=== PATIENT | male | born 1965 | race American Indian/Alaskan Native ===

== ENCOUNTER 2016-11-08 07:33 | Emergency (ER) | payer MEDICARE ==
[2016-11-08 08:23] LABS: Basophils % (Auto) 0.8 % (0.0-1.8); Eosinophils % (Auto) 0.5 % (0.0-4.3); Hematocrit 42.5 % (35.5-45.6); Hemoglobin 14.4 gm/dl (11.8-15.2); Mean Corpuscular HGB Conc 34 % (32-34); Mean Corpuscular Hemoglobin 32 pg (28-32); Mean Corpuscular Volume 96 fl (84-94); Platelet Count 237 K/mm3 (140-440); Red Blood Count 4.45 M/mm3 (3.65-5.03); Red Cell Distribution Width 13.1 % (13.2-15.2); White Blood Count 5.9 K/mm3 (4.5-11.0)
[2016-11-08 11:20] LABS: Anion Gap 25 mmol/L; Blood Urea Nitrogen 13 mg/dL (9-20); Calcium 9.6 mg/dL (8.4-10.2); Carbon Dioxide 20 mmol/L (22-30); Chloride 99.5 mmol/L (98-107); Glucose 76 mg/dL (75-100); Potassium 4.4 mmol/L (3.6-5.0); Sodium 140 mmol/L (137-145)
[2016-11-08 16:33] LABS: Urine Drugs of Abuse Note Disclamer
[2016-11-08] MEDS ORDERED: LIBRIUM PO ONE (16:37)
[2016-11-08] MEDS ORDERED: VALIUM IV ONE (16:37)
[2016-11-08] MEDS ORDERED: ZOFRAN IV ONE (16:37)
[2016-11-08] MEDS ORDERED: NACL ONE (16:37)
--- NOTE | 2016-11-08 16:39 | Emergency Department Report ---
ED General Adult HPI - General Chief complaint: Psych Stated complaint: MH Time Seen by Provider: 11/08/16 16:25 Source: patient, RN notes reviewed, old records reviewed Mode of arrival: Ambulatory Limitations: No Limitations - History of Present Illness Initial comments: This is a 51-year-old male. He is previously unknown to me. He has a past medical history of bipolar disorder, hypertension, GERD, HIV. His HIV specialist is at [facility], he reports an undetectable viral load, and a CD4 count in the 700s. The patient reports that he is on highly active antiretroviral therapy. The patient has been compliant with his HIV medication with the exception over the past few days. The patient presents to the ER complaining of abdominal pain, nausea, after a recent alcohol binge. He wants to get detoxed from alcohol and crack cocaine. His abdominal pain is primarily left lower quadrant. It is achy. It is increasing with palpation, decreases with rest. Positive nausea, no vomiting. There is no testicular pain. No irritative or obstructive urinary symptoms. The patient does report that he feels hopeless, and has thought about suicide. He denies toxic ingestions, and he currently does not have a plan for suicide. -: Gradual Location: abdomen Quality: aching Consistency: intermittent Improves with: rest Worsens with: movement Associated Symptoms: loss of appetite - Related Data Home Medications Medication Instructions Recorded Confirmed Last Taken Norvir 1 cap PO DAILY 01/07/16 11/08/16 Unknown Prezista 1 tab PO DAILY 01/07/16 11/08/16 Unknown TRUVADA 200-300 mg 1 tab PO DAILY 01/07/16 11/08/16 Unknown amLODIPine 5 mg PO DAILY 01/07/16 11/08/16 Unknown Sertraline [Zoloft] 50 mg PO QDAY 11/08/16 11/08/16 Unknown traZODone [Desyrel] 100 mg PO QHS PRN 11/08/16 11/08/16 Unknown Allergies Allergy/AdvReac Type Severity Reaction Status Date / Time lisinopril AdvReac Unknown Verified 01/07/16 01:02 Sulfa (Sulfonamide AdvReac Unknown Verified 01/07/16 01:02 Antibiotics) ED Review of Systems ROS: Stated complaint: MH Other details as noted in HPI Constitutional: denies: fever Eyes: denies: eye discharge ENT: denies: epistaxis Respiratory: denies: cough Cardiovascular: denies: chest pain Gastrointestinal: abdominal pain Genitourinary: as per HPI. denies: urgency, dysuria, testicular pain Musculoskeletal: denies: back pain Skin: denies: lesions Neurological: denies: weakness Psychiatric: anxiety, depression, suicidal thoughts. denies: homicidal thoughts ED Past Medical Hx - Past Medical History Previous Medical History?: Yes Hx Hypertension: Yes Hx GERD: Yes Hx Psychiatric Treatment: Yes (Bipolar) Hx HIV: Yes - Surgical History Past Surgical History?: No - Social History Smoking Status: Current Every Day Smoker Substance Use Type: Alcohol, Cocaine - Medications Home Medications: Home Medications Medication Instructions Recorded Confirmed Last Taken Type Norvir 1 cap PO DAILY 01/07/16 11/08/16 Unknown History Prezista 1 tab PO DAILY 01/07/16 11/08/16 Unknown History TRUVADA 200-300 mg 1 tab PO DAILY 01/07/16 11/08/16 Unknown History amLODIPine 5 mg PO DAILY 01/07/16 11/08/16 Unknown History Sertraline [Zoloft] 50 mg PO QDAY 11/08/16 11/08/16 Unknown History traZODone [Desyrel] 100 mg PO QHS PRN 11/08/16 11/08/16 Unknown History ED Physical Exam - General Limitations: No Limitations General appearance: alert, in no apparent distress - Head Head exam: Present: atraumatic, normocephalic - Eye Eye exam: Present: normal appearance, EOMI, other (patient appears somewhat anxious, mild tongue fasciculations are noted.). Absent: nystagmus - ENT ENT exam: Present: normal exam, normal orophraynx, mucous membranes moist, normal external ear exam - Neck Neck exam: Present: normal inspection, full ROM. Absent: tenderness, meningismus - Respiratory Respiratory exam: Present: normal lung sounds bilaterally. Absent: respiratory distress, wheezes, rales, rhonchi, stridor, chest wall tenderness - Cardiovascular Cardiovascular Exam: Present: regular rate, normal rhythm, normal heart sounds. Absent: bradycardia, tachycardia, irregular rhythm, systolic murmur, diastolic murmur, rubs, gallop - GI/Abdominal GI/Abdominal exam: Present: soft, tenderness (his left lower quadrant tenderness. There is no rebound, guarding or peritoneal signs.), normal bowel sounds. Absent: distended, guarding, rebound, rigid, pulsatile mass - Rectal Rectal exam: Present: deferred - Extremities Exam Extremities exam: Present: normal inspection, full ROM, normal capillary refill. Absent: tenderness, pedal edema, joint swelling, calf tenderness - Back Exam Back exam: Present: normal inspection, full ROM. Absent: tenderness, CVA tenderness (R) - Neurological Exam Neurological exam: Present: alert, oriented X3, normal gait. Absent: motor sensory deficit - Psychiatric Psychiatric exam: Present: depressed, suicidal ideation. Absent: homicidal ideation - Skin Skin exam: Present: warm, dry, intact, normal color. Absent: rash ED Course Vital Signs 11/08/16 11/08/16 11/08/16 07:39 16:29 16:31 Temperature 98.4 F 97.6 F Pulse Rate 107 H 72 Respiratory 18 16 16 Rate Blood Pressure 162/99 Blood Pressure 143/78 [Right] O2 Sat by Pulse 100 100 100 Oximetry 11/08/16 19:38 Temperature 97.7 F Pulse Rate 84 Respiratory 20 Rate Blood Pressure Blood Pressure 170/84 [Right] O2 Sat by Pulse 100 Oximetry - Reevaluation(s) Reevaluation #1: 11/08/16 17:28 Differential diagnosis: Colitis, diverticulitis, pancreatitis, GERD/gastritis, hepatitis, alcohol dependence, alcohol withdrawal, suicidality, mood disorder Assessment and plan: 51-year-old male with abdominal pain after recent alcohol- induced binge, and also suicidality. He requires 1013. May have mild early withdrawal. He will be treated symptomatically with IV fluids, Librium, Valium. Antiemetic medication is ordered. Additional laboratory studies are ordered. CT scan of the abdomen and pelvis is ordered. Medication reconciliation has already been performed by the nurse. We will reassess once his harper points have returned Reevaluation #2: Patient resting comfortably. There is no active vomiting. He appears to be stable from an HIV perspective. A CT scan did not demonstrate any emergent surgical condition. The patient is tolerating liquid feeds. At this point in time, I cannot detect any medical contraindication to psychiatric admission/ evaluation/placement. Crisis team was informed. 11/08/16 18:18 ED Medical Decision Making - Lab Data Result diagrams: 11/08/16 07:58 11/08/16 07:58 Vital Signs 11/08/16 11/08/16 11/08/16 07:39 16:29 16:31 Temperature 98.4 F 97.6 F Pulse Rate 107 H 72 Respiratory 18 16 16 Rate Blood Pressure 162/99 Blood Pressure 143/78 [Right] O2 Sat by Pulse 100 100 100 Oximetry Labs 11/08/16 11/08/16 11/08/16 07:58 07:58 07:58 WBC 5.9 RBC 4.45 Hgb 14.4 Hct 42.5 MCV 96 H MCH 32 MCHC 34 RDW 13.1 L Plt Count 237 Lymph % (Auto) 40.2 H [place] % (Auto) 7.9 H Eos % (Auto) 0.5 Baso % (Auto) 0.8 Lymph # 2.4 [place] # 0.5 Eos # 0.0 Baso # 0.0 Seg Neutrophils % 50.6 Seg Neutrophils # 3.0 Sodium 140 Potassium 4.4 Chloride 99.5 Carbon Dioxide 20 L Anion Gap 25 BUN 13 Creatinine 1.0 Estimated GFR > 60 BUN/Creatinine Ratio 13.00 Glucose 76 Calcium 9.6 Urine Color Urine Turbidity Urine pH Ur Specific [place] Urine Protein Urine Glucose (UA) Urine Ketones Urine Blood Urine Nitrite Urine Bilirubin Urine Urobilinogen Ur Leukocyte Esterase Urine WBC (Auto) Urine RBC (Auto) U Epithel Cells (Auto) Urine Mucus Urine Cocaine Screen Plasma/Serum Alcohol 0.07 11/08/16 11/08/16 16:20 16:29 WBC RBC Hgb Hct MCV MCH MCHC RDW Plt Count Lymph % (Auto) [place] % (Auto) Eos % (Auto) Baso % (Auto) Lymph # [place] # Eos # Baso # Seg Neutrophils % Seg Neutrophils # Sodium Potassium Chloride Carbon Dioxide Anion Gap BUN Creatinine Estimated GFR BUN/Creatinine Ratio Glucose Calcium Urine Color Yellow Urine Turbidity Clear Urine pH 5.0 Ur Specific [place] 1.023 Urine Protein 30 mg/dl Urine Glucose (UA) Neg Urine Ketones 20 Urine Blood Sm Urine Nitrite Neg Urine Bilirubin Neg Urine Urobilinogen < 2.0 Ur Leukocyte Esterase Neg Urine WBC (Auto) 1.0 Urine RBC (Auto) < 1.0 U Epithel Cells (Auto) < 1.0 Urine Mucus 1+ Urine Cocaine Screen Presumptive positive Plasma/Serum Alcohol - Radiology Data Radiology results: report reviewed CT scan of the abdomen and pelvis with IV contrast: No acute intra-abdominal processes noted. No inflammatory processes noted. There is a complex cyst in the left mid kidney. May be causing a mild delay of excretion contrast, however there is no evidence for obstruction to the left kidney. No acute inflammatory processes noted. Critical care attestation.: If time is entered above; I have spent that time in minutes in the direct care of this critically ill patient, excluding procedure time. ED Disposition Clinical Impression: Polysubstance abuse, Mood disorder Disposition: DC/TX PSY HOSP/PSY UNIT Is pt being admited?: No Does the pt Need Aspirin: No Condition: Stable Referrals: PRIMARY CARE, [Primary Care Provider] - 3-5 Days
[2016-11-08] MEDS: NACL 0.9% 500 ML IV SCH (17:01)
[2016-11-08 17:21] LABS: Bilirubin,Urine NEG (Negative); Blood,Urine SM (Negative); Ketones,Urine 20 mg/dL (Negative); Leukocyte Esterase,Urine NEG (Negative); Mucus,Urine 1+ /HPF; Nitrite,Urine NEG (Negative); RBC,Urine < 1.0 /HPF (0.0-6.0); Urobilinogen,Urine < 2.0 mg/dL (<2.0)
[2016-11-08] MEDS ORDERED: DESYREL PO PRN (17:22)
[2016-11-08] MEDS ORDERED: ZOFRAN ODT PO PRN (17:23)
[2016-11-08] MEDS ORDERED: PEPCID PO PRN (17:23)
[2016-11-08] MEDS ORDERED: ATIVAN IM PRN (17:23)
[2016-11-08] MEDS ORDERED: NORVIR PO SCH (17:30)
[2016-11-08] MEDS ORDERED: TRUVADA PO SCH (17:30)
[2016-11-08] MEDS ORDERED: NACL 0.9% 1000 ML 2,000 ML ONE (17:30)
[2016-11-08 17:36] LABS: Albumin 4.7 g/dL (3.9-5); Albumin/Globulin Ratio 1.6 %; Bilirubin,Direct 0.3 mg/dL (0-0.2); Bilirubin,Total 1.3 mg/dL (0.1-1.2); Total Protein 7.7 g/dL (6.3-8.2)
--- NOTE | 2016-11-08 18:07 | Cat Scan Report ---
FINAL REPORT EXAM: CT ABDOMEN PELVIS W CON HISTORY: LLQ pain nausea TECHNIQUE: Standard enhanced CT of the abdomen and pelvis. Coronal and sagittal reconstruction was also performed. Delayed images through the kidneys and bladder were obtained. Contrast: 100 mL Omnipaque 300 given IV. PRIORS: None. FINDINGS: Within the abdomen, the liver, spleen, pancreas, gallbladder, and adrenal glands are unremarkable. In the peripelvic left kidney, there is a 4.3 x 3.5 x 4.2 cm low-density multilobulated cyst (axial image 40, series 3). There is a hypodense 9 mm cyst in the midpole right kidney (Axial image 35, series 4. On delayed imaging, there is complete visualization of the right ureter with excreted contrast. However, no significant excreted contrast is seen in the left ureter. There is contrast in the nondilated left calices. However, the presence of the large peripelvic cyst may cause a mild delay in excretion into the left ureter. No delayed nephrogram is seen to suggest renal obstruction on the left. No evidence for retroperitoneal or pelvic lymphadenopathy is seen. The small bowel loops have normal caliber. There is moderate stool present throughout the colon, most of which is in the distal half of the colon. No soft tissue mass, fluid collection, inflammatory change, or free air is seen within the abdomen or pelvis. Within the pelvis, the bladder is unremarkable. The prostate is normal. No evidence for mass or lymphadenopathy is seen in the pelvis. Images through the upper abdomen include the lung bases which are expanded and clear. Bony structures show no focal abnormalities and are intact. IMPRESSION: 1. no acute intra-abdominal process noted. No inflammatory process is seen in the left lower quadrant. 2. Large peripelvic cyst in the left mid kidney. This may be causing a mild delay of excreted contrast entering the left ureter. However, no radiographic evidence for obstruction of the left kidney is seen. 3. Small right renal cyst
[2016-11-09] MEDS: EMTRIVA PO SCH ×2 (04:02→10:59)
[2016-11-09] MEDS: NORVIR PO SCH ×2 (04:02→10:59)
[2016-11-09] MEDS: VIREAD PO SCH ×2 (04:03→10:59)
[2016-11-09] MEDS: PREZISTA PO SCH ×2 (04:04→11:00)
[2016-11-09] MEDS: ZOLOFT PO SCH ×2 (04:49→11:05)
[2016-11-09] MEDS: NORVASC PO SCH (11:04)
[2016-11-09] MEDS: NACL 0.9% 500 ML IV SCH (18:03)
--- NOTE | 2016-11-10 01:54 | Event Note ---
Date: 11/10/16 Vital signs are reviewed. No recent events. Awaiting psychiatric placement Vital Signs 11/08/16 11/08/16 11/08/16 07:39 16:29 16:31 Temperature 98.4 F 97.6 F Pulse Rate 107 H 72 Respiratory 18 16 16 Rate Blood Pressure 162/99 Blood Pressure 143/78 [Right] O2 Sat by Pulse 100 100 100 Oximetry 11/08/16 11/09/16 11/09/16 19:38 02:10 11:04 Temperature 97.7 F 97.7 F Pulse Rate 84 88 60 Respiratory 20 16 Rate Blood Pressure 144/75 Blood Pressure 170/84 135/73 [Right] O2 Sat by Pulse 100 98 Oximetry 11/09/16 11:05 Temperature Pulse Rate 60 Respiratory 18 Rate Blood Pressure Blood Pressure 144/75 [Right] O2 Sat by Pulse 98 Oximetry
[2016-11-10] MEDS: ZOLOFT PO SCH (09:55)
[2016-11-10] MEDS: NORVIR PO SCH (09:55)
[2016-11-10] MEDS: EMTRIVA PO SCH (09:55)
[2016-11-10] MEDS: VIREAD PO SCH (09:55)
[2016-11-10] MEDS: NORVASC PO SCH (09:55)
[2016-11-11] MEDS: NORVIR PO SCH (10:32)
[2016-11-11] MEDS: EMTRIVA PO SCH (10:32)
[2016-11-11] MEDS: ZOLOFT PO SCH (10:33)
[2016-11-11] MEDS: VIREAD PO SCH (10:33)
[2016-11-11] MEDS: NORVASC PO SCH (10:33)
--- NOTE | 2016-11-12 05:59 | Event Note ---
Date: 11/12/16 Vital signs reviewed. Patient awaiting psychiatric placement. Vital Signs 11/08/16 11/08/16 11/08/16 07:39 16:29 16:31 Temperature 98.4 F 97.6 F Pulse Rate 107 H 72 Respiratory 18 16 16 Rate Blood Pressure 162/99 Blood Pressure 143/78 [Right] O2 Sat by Pulse 100 100 100 Oximetry 11/08/16 11/09/16 11/09/16 19:38 02:10 11:04 Temperature 97.7 F 97.7 F Pulse Rate 84 88 60 Respiratory 20 16 Rate Blood Pressure 144/75 Blood Pressure 170/84 135/73 [Right] O2 Sat by Pulse 100 98 Oximetry 11/09/16 11/09/16 11/09/16 11:05 19:25 20:20 Temperature 98.5 F Pulse Rate 60 60 Respiratory 18 18 18 Rate Blood Pressure Blood Pressure 144/75 132/73 [Right] O2 Sat by Pulse 98 100 Oximetry 11/10/16 11/10/16 11/10/16 07:30 09:54 09:55 Temperature 98.1 F Pulse Rate 57 L 79 79 Respiratory 20 18 Rate Blood Pressure 125/75 Blood Pressure 123/81 125/75 [Right] O2 Sat by Pulse 98 98 Oximetry 11/10/16 11/11/16 11/11/16 19:25 08:55 10:33 Temperature 98.5 F 97.5 F L Pulse Rate 56 L 50 L 50 L Respiratory 18 18 Rate Blood Pressure 158/83 Blood Pressure 133/66 158/83 [Right] O2 Sat by Pulse 99 99 Oximetry 11/11/16 21:00 Temperature 97.8 F Pulse Rate 53 L Respiratory 18 Rate Blood Pressure Blood Pressure 143/88 [Right] O2 Sat by Pulse 99 Oximetry
[2016-11-12] MEDS: NORVASC PO SCH (11:21)
[2016-11-12] MEDS: EMTRIVA PO SCH (11:21)
[2016-11-12] MEDS: ZOLOFT PO SCH (11:22)
[2016-11-12] MEDS: VIREAD PO SCH (11:22)
[2016-11-12] MEDS: NORVIR PO SCH (11:22)
--- NOTE | 2016-11-13 04:43 | Event Note ---
Date: 11/13/16 Vital signs reviewed. Awaiting psychiatric placement. Vital Signs 11/08/16 11/08/16 11/08/16 07:39 16:29 16:31 Temperature 98.4 F 97.6 F Pulse Rate 107 H 72 Respiratory 18 16 16 Rate Blood Pressure 162/99 Blood Pressure 143/78 [Right] O2 Sat by Pulse 100 100 100 Oximetry 11/08/16 11/09/16 11/09/16 19:38 02:10 11:04 Temperature 97.7 F 97.7 F Pulse Rate 84 88 60 Respiratory 20 16 Rate Blood Pressure 144/75 Blood Pressure 170/84 135/73 [Right] O2 Sat by Pulse 100 98 Oximetry 11/09/16 11/09/16 11/09/16 11:05 19:25 20:20 Temperature 98.5 F Pulse Rate 60 60 Respiratory 18 18 18 Rate Blood Pressure Blood Pressure 144/75 132/73 [Right] O2 Sat by Pulse 98 100 Oximetry 11/10/16 11/10/16 11/10/16 07:30 09:54 09:55 Temperature 98.1 F Pulse Rate 57 L 79 79 Respiratory 20 18 Rate Blood Pressure 125/75 Blood Pressure 123/81 125/75 [Right] O2 Sat by Pulse 98 98 Oximetry 11/10/16 11/11/16 11/11/16 19:25 08:55 10:33 Temperature 98.5 F 97.5 F L Pulse Rate 56 L 50 L 50 L Respiratory 18 18 Rate Blood Pressure 158/83 Blood Pressure 133/66 158/83 [Right] O2 Sat by Pulse 99 99 Oximetry 11/11/16 11/12/16 11/12/16 21:00 10:00 11:21 Temperature 97.8 F Pulse Rate 53 L 66 Respiratory 18 18 Rate Blood Pressure 124/84 Blood Pressure 143/88 [Right] O2 Sat by Pulse 99 Oximetry 11/12/16 11/12/16 19:00 21:00 Temperature 98.1 F Pulse Rate 82 Respiratory 16 16 Rate Blood Pressure Blood Pressure 128/78 [Right] O2 Sat by Pulse 100 100 Oximetry
[2016-11-13] MEDS: NORVASC PO SCH (11:11)
[2016-11-13] MEDS: EMTRIVA PO SCH (11:11)
[2016-11-13 11:12] VITALS: BP 97/72
[2016-11-13] MEDS: NORVIR PO SCH (11:12)
[2016-11-13] MEDS: VIREAD PO SCH (11:12)
[2016-11-13] MEDS: ZOLOFT PO SCH (11:13)
== END 2016-11-13 19:30 ==
LOC: ED 07:33 → EEVIPCON 07:33 → ED 11-13 19:30
DX: F39 Unspecified mood [affective] disorder (principal); F19.10 Other psychoactive substance abuse, uncomplicated; I10 Essential (primary) hypertension; K21.9 Gastro-esophageal reflux disease without esophagitis; F31.9 Bipolar disorder, unspecified
CPT/HCPCS: 36415; 74177; 80048; 80074; 80307; 81001; 82550; 83690; 83735; 85025; 96374; 96375; 99285; G0480; J2405; J3360; J7030; Q9967; 80320

== ENCOUNTER 2017-09-07 12:32 | Emergency (ER) | payer MEDICARE ==
[2017-09-07 14:45] LABS: Urine Drugs of Abuse Note Disclamer
[2017-09-07 14:55] LABS: Bilirubin,Urine NEG (Negative); Blood,Urine NEG (Negative); Ketones,Urine NEG (Negative); Leukocyte Esterase,Urine NEG (Negative); Nitrite,Urine NEG (Negative); Protein,Urine <15 mg/dL mg/dL (Negative); RBC,Urine < 1.0 /HPF (0.0-6.0); Urobilinogen,Urine < 2.0 mg/dL (<2.0); WBC,Urine < 1.0 /HPF (0.0-6.0)
[2017-09-07 15:42] LABS: Basophils % (Auto) 0.6 % (0.0-1.8); Eosinophils % (Auto) 0.6 % (0.0-4.3); Hematocrit 35.8 % (35.5-45.6); Hemoglobin 12.2 gm/dl (11.8-15.2); Mean Corpuscular HGB Conc 34 % (32-34); Mean Corpuscular Hemoglobin 33 pg (28-32); Mean Corpuscular Volume 98 fl (84-94); Platelet Count 186 K/mm3 (140-440); Red Blood Count 3.66 M/mm3 (3.65-5.03); White Blood Count 5.1 K/mm3 (4.5-11.0)
[2017-09-07 15:51] LABS: Anion Gap 17 mmol/L; BUN/Creatinine Ratio 20; Blood Urea Nitrogen 20 mg/dL (9-20); Carbon Dioxide 27 mmol/L (22-30); Chloride 102.5 mmol/L (98-107); Glucose 89 mg/dL (75-100); Potassium 3.8 mmol/L (3.6-5.0); Sodium 143 mmol/L (137-145)
[2017-09-07 15:59] LABS: Creatine Kinase MB 5.6 ng/mL (0.0-4.0)
[2017-09-07] MEDS ORDERED: MILK OF MAGNESIA PO PRN (18:05)
[2017-09-07] MEDS ORDERED: TYLENOL PO PRN (18:05)
[2017-09-07] MEDS ORDERED: ALUM-MAG HYDROX-SIMETH 200-200-20MG/5ML PO PRN (18:05)
--- NOTE | 2017-09-07 18:12 | Emergency Department Report ---
ED Psych HPI - General Chief Complaint: Psych Stated Complaint: SUICIDAL THOUGHTS Time Seen by Provider: 09/07/17 15:30 Source: patient Mode of arrival: Ambulatory - History of Present Illness Initial Comments: Patient has had multiple previous psychiatric admissions. He states he wants to be admitted again for stabilization. He states he is having suicidal and homicidal thoughts. He has a history of HIV and states he is noncompliant with his medication. He states he is depressed. He admits to alcohol and cocaine abuse. MD Complaint: suicidal ideation -: month(s) Associated Psychiatric Symptoms: depression, homicidal ideation History of same: Yes Quality: intermittent Improves With: none Worsens With: none Context: recent alcohol abuse, recent drug abuse Associated Symptoms: denies other symptoms Treatments Prior to Arrival: none If Self Harm: admits thoughts of - Related Data Home Medications Medication Instructions Recorded Confirmed Last Taken Norvir 1 cap PO DAILY 01/07/16 11/08/16 Unknown Prezista 1 tab PO DAILY 01/07/16 11/08/16 Unknown TRUVADA 200-300 mg 1 tab PO DAILY 01/07/16 11/08/16 Unknown amLODIPine 5 mg PO DAILY 01/07/16 11/08/16 Unknown Sertraline [Zoloft] 50 mg PO QDAY 11/08/16 11/08/16 Unknown traZODone [Desyrel] 100 mg PO QHS PRN 11/08/16 11/08/16 Unknown Allergies Allergy/AdvReac Type Severity Reaction Status Date / Time lisinopril AdvReac Unknown Verified 09/07/17 13:08 Sulfa (Sulfonamide AdvReac Unknown Verified 09/07/17 13:08 Antibiotics) ED Review of Systems ROS: Stated complaint: SUICIDAL THOUGHTS Other details as noted in HPI Constitutional: denies: chills, fever Eyes: denies: eye pain, eye discharge, vision change ENT: denies: ear pain, throat pain Respiratory: denies: cough, shortness of breath, wheezing Cardiovascular: denies: chest pain, palpitations Endocrine: no symptoms reported Gastrointestinal: denies: abdominal pain, nausea, diarrhea Genitourinary: denies: urgency, dysuria Musculoskeletal: denies: back pain, joint swelling, arthralgia Skin: denies: rash, lesions Neurological: denies: headache, weakness, paresthesias Psychiatric: as per HPI, depression, suicidal thoughts. denies: anxiety Hematological/Lymphatic: denies: easy bleeding, easy bruising ED Past Medical Hx - Past Medical History Hx Hypertension: Yes Hx GERD: Yes Hx Psychiatric Treatment: Yes (Bipolar; Schizophrenia) Hx HIV: Yes (On medications) - Surgical History Past Surgical History?: Yes Additional Surgical History: Rectal fistula repair - Social History Smoking Status: Never Smoker Substance Use Type: Alcohol, Cocaine - Medications Home Medications: Home Medications Medication Instructions Recorded Confirmed Last Taken Type Norvir 1 cap PO DAILY 01/07/16 11/08/16 Unknown History Prezista 1 tab PO DAILY 01/07/16 11/08/16 Unknown History TRUVADA 200-300 mg 1 tab PO DAILY 01/07/16 11/08/16 Unknown History amLODIPine 5 mg PO DAILY 01/07/16 11/08/16 Unknown History Sertraline [Zoloft] 50 mg PO QDAY 11/08/16 11/08/16 Unknown History traZODone [Desyrel] 100 mg PO QHS PRN 11/08/16 11/08/16 Unknown History ED Physical Exam - General Limitations: No Limitations General appearance: alert, in no apparent distress - Head Head exam: Present: atraumatic, normocephalic - Eye Eye exam: Present: normal appearance. Absent: scleral icterus - ENT ENT exam: Present: normal exam, mucous membranes moist - Neck Neck exam: Present: normal inspection. Absent: tenderness, meningismus - Respiratory Respiratory exam: Present: normal lung sounds bilaterally. Absent: respiratory distress - Cardiovascular Cardiovascular Exam: Present: regular rate, normal rhythm. Absent: systolic murmur, diastolic murmur, rubs, gallop - GI/Abdominal GI/Abdominal exam: Present: soft, normal bowel sounds. Absent: distended, tenderness, guarding, rebound, rigid - Rectal Rectal exam: Present: deferred - Extremities Exam Extremities exam: Present: normal inspection - Back Exam Back exam: Present: normal inspection - Neurological Exam Neurological exam: Present: alert, oriented X3, CN II-XII intact. Absent: motor sensory deficit - Psychiatric Psychiatric exam: Present: normal mood, flat affect - Skin Skin exam: Present: warm, dry, intact, normal color. Absent: rash ED Course Vital Signs 09/07/17 13:08 Temperature 98 F Pulse Rate 58 L Respiratory 18 Rate Blood Pressure 143/88 O2 Sat by Pulse 100 Oximetry - Reevaluation(s) Reevaluation #1: Case was discussed with mental health provider. A 1013 was placed. Patient is medically cleared for psychiatric disposition. 09/07/17 18:11 ED Medical Decision Making - Lab Data Result diagrams: 09/07/17 15:12 09/07/17 15:12 Laboratory Results - last 24 hr 09/07/17 09/07/17 09/07/17 15:12 15:12 15:12 WBC 5.1 RBC 3.66 Hgb 12.2 Hct 35.8 MCV 98 H MCH 33 H MCHC 34 RDW 13.0 L Plt Count 186 Lymph % (Auto) 37.7 H [place] % (Auto) 9.1 H Eos % (Auto) 0.6 Baso % (Auto) 0.6 Lymph # 1.9 [place] # 0.5 Eos # 0.0 Baso # 0.0 Seg Neutrophils % 52.0 Seg Neutrophils # 2.6 Sodium 143 Potassium 3.8 Chloride 102.5 Carbon Dioxide 27 Anion Gap 17 BUN 20 Creatinine 1.0 Estimated GFR > 60 BUN/Creatinine Ratio 20 Glucose 89 Calcium 9.0 Total Creatine Kinase CK-MB (CK-2) CK-MB (CK-2) Rel Index Urine Color Urine Turbidity Urine pH Ur Specific [place] Urine Protein Urine Glucose (UA) Urine Ketones Urine Blood Urine Nitrite Urine Bilirubin Urine Urobilinogen Ur Leukocyte Esterase Urine WBC (Auto) Urine RBC (Auto) Urine Opiates Screen Urine Methadone Screen Ur Barbiturates Screen Ur Phencyclidine Scrn Ur Amphetamines Screen U Benzodiazepines Scrn Urine Cocaine Screen U Marijuana (THC) Screen Drugs of Abuse Note Plasma/Serum Alcohol < 0.01 09/07/17 09/07/17 09/07/17 15:12 Unknown Unknown WBC RBC Hgb Hct MCV MCH MCHC RDW Plt Count Lymph % (Auto) [place] % (Auto) Eos % (Auto) Baso % (Auto) Lymph # [place] # Eos # Baso # Seg Neutrophils % Seg Neutrophils # Sodium Potassium Chloride Carbon Dioxide Anion Gap BUN Creatinine Estimated GFR BUN/Creatinine Ratio Glucose Calcium Total Creatine Kinase 325 H CK-MB (CK-2) 5.6 H CK-MB (CK-2) Rel Index 1.7 Urine Color Yellow Urine Turbidity Clear Urine pH 7.0 Ur Specific [place] 1.018 Urine Protein <15 mg/dl Urine Glucose (UA) Neg Urine Ketones Neg Urine Blood Neg Urine Nitrite Neg Urine Bilirubin Neg Urine Urobilinogen < 2.0 Ur Leukocyte Esterase Neg Urine WBC (Auto) < 1.0 Urine RBC (Auto) < 1.0 Urine Opiates Screen Presumptive negative Urine Methadone Screen Presumptive negative Ur Barbiturates Screen Presumptive negative Ur Phencyclidine Scrn Presumptive negative Ur Amphetamines Screen Presumptive negative U Benzodiazepines Scrn Presumptive negative Urine Cocaine Screen Presumptive positive U Marijuana (THC) Screen Presumptive negative Drugs of Abuse Note Disclamer Plasma/Serum Alcohol Critical care attestation.: If time is entered above; I have spent that time in minutes in the direct care of this critically ill patient, excluding procedure time. ED Disposition Clinical Impression: Suicidal ideation, Cocaine abuse, HIV antibody positive Depression Qualifiers: Depression Type: unspecified Qualified Code(s): F32.9 - Major depressive disorder, single episode, unspecified Disposition: DC/TX-65 PSY HOSP/PSY UNIT Is pt being admited?: No Does the pt Need Aspirin: No Condition: Stable Referrals: PRIMARY CARE [Primary Care Provider] - 3-5 Days Time of Disposition: 18:12
[2017-09-07 21:14] VITALS: BP 132/75
== END 2017-09-08 00:33 ==
LOC: ED 12:32
DX: R45.851 Suicidal ideations (principal); F32.9 Major depressive disorder, single episode, unspecified; F14.10 Cocaine abuse, uncomplicated; Z21 Asymptomatic human immunodeficiency virus [HIV] infection status; K21.9 Gastro-esophageal reflux disease without esophagitis; I10 Essential (primary) hypertension; F31.9 Bipolar disorder, unspecified; Z88.2 Allergy status to sulfonamides; Z88.8 Allergy status to other drugs, medicaments and biological substances
CPT/HCPCS: 36415; 80048; 80307; 81001; 82550; 82553; 85025; 99285; G0480; 80320

== ENCOUNTER 2017-11-19 02:45 | Emergency (ER) | payer MEDICARE ==
[2017-11-19 03:26] LABS: Basophils % (Auto) 0.6 % (0.0-1.8); Eosinophils # (Auto) 0.1 K/mm3 (0.0-0.4); Eosinophils % (Auto) 1.1 % (0.0-4.3); Lymphocytes # (Auto) 2.9 K/mm3 (1.2-5.4); Lymphocytes % (Auto) 53.2 % (13.4-35.0); Mean Corpuscular HGB Conc 36 % (32-34); Mean Corpuscular Hemoglobin 34 pg (28-32); Mean Corpuscular Volume 96 fl (84-94); Monocytes # (Auto) 0.4 K/mm3 (0.0-0.8); Monocytes % (Auto) 6.8 % (0.0-7.3); Platelet Count 202 K/mm3 (140-440); Red Cell Distribution Width 13.8 % (13.2-15.2)
[2017-11-19 03:34] LABS: Hematocrit 38.2 % (35.5-45.6); Hemoglobin 13.8 gm/dl (11.8-15.2)
[2017-11-19 03:41] LABS: Calcium 9.1 mg/dL (8.4-10.2)
[2017-11-19 04:40] LABS: Bilirubin,Urine NEG (Negative); Blood,Urine NEG (Negative); Color,Urine Yellow (Yellow); Hyaline Casts,Urine 1 /LPF; Mucus,Urine FEW /HPF; Nitrite,Urine NEG (Negative); Protein,Urine <15 mg/dL mg/dL (Negative); Urobilinogen,Urine < 2.0 mg/dL (<2.0)
[2017-11-19 04:44] LABS: WBC,Urine < 1.0 /HPF (0.0-6.0)
[2017-11-19 04:53] LABS: Amphetamine Screen,Urine PRESUMPTIVE NEGATIVE; Benzodiazepines Screen,Urine PRESUMPTIVE NEGATIVE; Cannabinoid Screen,Urine PRESUMPTIVE NEGATIVE; Cocaine Screen,Urine PRESUMPTIVE NEGATIVE; Methadone Screen,Urine PRESUMPTIVE NEGATIVE; Opiate Screen,Urine PRESUMPTIVE NEGATIVE
--- NOTE | 2017-11-19 05:23 | Emergency Department Report ---
HPI - General Chief Complaint: Psych Time Seen by Provider: 11/19/17 04:00 - HPI HPI: 52-year-old female presents to the emergency department via PD after he was making some threats towards his partner. The patient says that he and his partner went to see the infectious disease doctor sometime yesterday and he found out that his partner had AIDS. The patient himself has HIV and says that he is compliant with taking medication. He also has a history of bipolar disorder and diverticulosis/diverticulitis. I asked if he was unaware that his partner had HIV and he said yes. However it also may have been that he was just not aware that the partner had developed AIDS. Whatever it was, it caused them to get into an argument and they may have ended their relationship. The 1013 by the police say that he was mentioning having suicidal thoughts. However in the emergency department here, the patient says that he "wants to kill him" in reference to his partner. ED Past Medical Hx - Past Medical History Hx Hypertension: Yes Hx GERD: Yes Hx Psychiatric Treatment: Yes (Bipolar; Schizophrenia) Hx HIV: Yes (On medications) - Surgical History Additional Surgical History: Rectal fistula repair - Social History Smoking Status: Never Smoker Substance Use Type: Alcohol - Medications Home Medications: Home Medications Medication Instructions Recorded Confirmed Last Taken Type Norvir 1 cap PO DAILY 01/07/16 11/19/17 Unknown History Prezista 1 tab PO DAILY 01/07/16 11/19/17 Unknown History TRUVADA 200-300 mg 1 tab PO DAILY 01/07/16 11/19/17 Unknown History amLODIPine 5 mg PO DAILY 01/07/16 11/19/17 Unknown History Sertraline [Zoloft] 50 mg PO QDAY 11/08/16 11/19/17 Unknown History traZODone [Desyrel] 100 mg PO QHS PRN 11/08/16 11/19/17 Unknown History ED Review of Systems ROS: Stated complaint: SI THOUGHTS Other details as noted in HPI Comment: All other systems reviewed and negative Constitutional: denies: chills, fever Eyes: denies: eye pain, eye discharge, vision change ENT: denies: ear pain, throat pain Respiratory: denies: cough, shortness of breath, wheezing Cardiovascular: denies: chest pain, palpitations Gastrointestinal: denies: abdominal pain, nausea, diarrhea Genitourinary: denies: urgency, dysuria Musculoskeletal: denies: back pain, joint swelling, arthralgia Skin: denies: rash, lesions Neurological: denies: headache, weakness, paresthesias Psychiatric: homicidal thoughts, suicidal thoughts. denies: auditory hallucinations, visual hallucinations Physical Exam - Physical Exam Vital Signs: Vital Signs 11/19/17 02:54 Temperature 97.4 F L Pulse Rate 100 H Respiratory 18 Rate Blood Pressure 164/99 O2 Sat by Pulse 96 Oximetry Physical Exam: GENERAL: The patient is well-developed well-nourished. HENT: Normocephalic. Atraumatic. Patient has moist mucous membranes. EYES: Extraocular motions are intact. Pupils equal reactive to light bilaterally. NECK: Supple. Trachea is midline. CHEST/LUNGS: Clear to auscultation. There is no respiratory distress noted. HEART/CARDIOVASCULAR: Regular. There is no tachycardia. There is no murmur. ABDOMEN: Abdomen is soft, nontender. Patient has normal bowel sounds. There is no abdominal distention. SKIN: Skin is warm and dry. NEURO: The patient is awake, alert, and oriented. The patient is cooperative. The patient has no focal neurologic deficits. The patient has normal speech. MUSCULOSKELETAL: There is no tenderness or deformity. There is no limitation range of motion. There is no evidence of acute injury. ED Course Vital Signs 11/19/17 02:54 Temperature 97.4 F L Pulse Rate 100 H Respiratory 18 Rate Blood Pressure 164/99 O2 Sat by Pulse 96 Oximetry ED Medical Decision Making - Lab Data Result diagrams: 11/19/17 03:07 11/19/17 03:07 - Medical Decision Making Vital signs stable. The patient has some moments where he gets tearful but otherwise he has been appropriate. Apparently he expressed some suicidal ideations towards the police but in the emergency department he is expressing some anger and/or making violent threats towards his partner. Urine drug screen is negative but blood alcohol level is 0.18. The rest of the labs are unremarkable. Patient has been made a 1013 secondary to the suicidal and/or homicidal ideations. He may need to sober up a bit but otherwise the patient is medically cleared for psychiatric placement. - Differential Diagnosis bipolar disorder, schizophrenia, substance abuse, depression Critical Care Time: No Critical care attestation.: If time is entered above; I have spent that time in minutes in the direct care of this critically ill patient, excluding procedure time. ED Disposition Clinical Impression: Homicidal ideations Alcohol intoxication Qualifiers: Complication of substance-induced condition: uncomplicated Qualified Code(s): F10.920 - Alcohol use, unspecified with intoxication, uncomplicated Hypertension Qualifiers: Hypertension type: essential hypertension Qualified Code(s): I10 - Essential ( primary) hypertension Disposition: DC/TX-65 PSY HOSP/PSY UNIT Is pt being admited?: No Condition: Stable Instructions: Hypertension (ED) Time of Disposition: 05:25
[2017-11-19 11:50] VITALS: BP 130/81
--- NOTE | 2017-11-19 14:31 | Consultation ---
History of Present Illness - Reason for Consult Consult date: 11/19/17 Reason for consult: Mental Health Evaluation Requesting physician: GIANCARLO FOSTER - Chief Complaint Chief complaint: "I am upset" - History of Present Psychiatric Illness 52-year-old female presents to the emergency department via PD after he was making some threats towards his partner. Today the patient is calm and cooperative during the assessment. He stated that his partner never told him that he had "Full blown AIDS." He stated that this angered him and he threatened his partner, also he is suicidal without a plan when asked. He stated that he does not want to kill anyone, but he does not have a reason to live anymore. He stated having a hx of depression and see a psychiatrist at [facility]. He stated several suicidal attempts in the past by overdose. He stated that he "got drunk" yesterday when he found out his partner's status. His alcohol serum was 0.18 on admission. He stated that he normally does not drink alcohol. He denies HI's and AVH's. He denies sleep disturbance and a poor appetite. He denies recreational drug use. Medications and Allergies Allergies Allergy/AdvReac Type Severity Reaction Status Date / Time lisinopril AdvReac Unknown Verified 09/07/17 13:08 Sulfa (Sulfonamide AdvReac Unknown Verified 09/07/17 13:08 Antibiotics) Home Medications Medication Instructions Recorded Confirmed Last Taken Type Norvir 1 cap PO DAILY 01/07/16 11/19/17 Unknown History Prezista 1 tab PO DAILY 01/07/16 11/19/17 Unknown History TRUVADA 200-300 mg 1 tab PO DAILY 01/07/16 11/19/17 Unknown History amLODIPine 5 mg PO DAILY 01/07/16 11/19/17 Unknown History Sertraline [Zoloft] 50 mg PO QDAY 11/08/16 11/19/17 Unknown History traZODone [Desyrel] 100 mg PO QHS PRN 11/08/16 11/19/17 Unknown History Past psychiatric history - Past Medical History Past Medical History: HIV/AIDS Past Surgical History: No surgical history - past Psychiatric treatment and history Psych: Depression psychiatric treatment history: Multiple inpatient psy settings. Denies a fam psy hx. - Social History Social history: lives with family Mental Status Exam - Vital signs Last Vital Signs Temp 98.4 F 11/19/17 10:00 Pulse 89 11/19/17 10:00 Resp 18 11/19/17 10:00 BP 130/81 11/19/17 10:00 Pulse Ox 98 11/19/17 10:00 - Exam Narrative exam: MSE: Appearance: calm Behavior: poor eye contact Speech: regular rate and tone Mood: "okay" withdrawn Affect: flat Thought Process: circumstantial Thought Content: denies HI's and AVH's Motor Activity: sitting up in the bed Cognition: A/O x 3 Insight: variable Judgment: variable Results Result Diagrams: 11/19/17 03:07 11/19/17 03:07 Abnormal lab results 11/19/17 11/19/17 11/19/17 Range/Units 03:07 03:07 03:07 MCV (84-94) fl MCH (28-32) pg MCHC (32-34) % Lymph % (Auto) (13.4-35.0) % Seg Neutrophils % (40.0-70.0) % Carbon Dioxide 21 L (22-30) mmol/L Glucose 103 H (75-100) mg/dL Salicylates < 0.3 L (2.8-20.0) mg/dL Plasma/Serum Alcohol 0.18 H (0-0.07) % 11/19/17 Range/Units 03:07 MCV 96 H (84-94) fl MCH 34 H (28-32) pg MCHC 36 H (32-34) % Lymph % (Auto) 53.2 H (13.4-35.0) % Seg Neutrophils % 38.3 L (40.0-70.0) % Carbon Dioxide (22-30) mmol/L Glucose (75-100) mg/dL Salicylates (2.8-20.0) mg/dL Plasma/Serum Alcohol (0-0.07) % All other labs normal. Assessment and Plan Assessment and plan: Impression: MDD, recurrent. Today the patient is calm and cooperative during the assessment. The patient endorses SI's. DDx: R/O Bipolar DO Recommendation/Plan: Continue 1013 with placement to [facility] today.
== END 2017-11-19 11:48 ==
LOC: ED 02:45
DX: F10.920 Alcohol use, unspecified with intoxication, uncomplicated (principal); F31.9 Bipolar disorder, unspecified; F20.9 Schizophrenia, unspecified; I10 Essential (primary) hypertension; K21.9 Gastro-esophageal reflux disease without esophagitis; Y90.0 Blood alcohol level of less than 20 mg/100 ml; Z88.8 Allergy status to other drugs, medicaments and biological substances; Z88.2 Allergy status to sulfonamides; Z79.899 Other long term (current) drug therapy
CPT/HCPCS: 36415; 80048; 80307; 81001; 85025; 99285; G0480; 80320

== ENCOUNTER 2018-03-05 04:42 | Emergency (ER) | payer MEDICARE ==
[2018-03-05 05:56] LABS: Basophils % (Auto) 1.1 % (0.0-1.8); Eosinophils % (Auto) 0.9 % (0.0-4.3); Hematocrit 42.7 % (35.5-45.6); Lymphocytes # (Auto) 1.7 K/mm3 (1.2-5.4); Lymphocytes % (Auto) 39.9 % (13.4-35.0); Mean Corpuscular HGB Conc 35 % (32-34); Mean Corpuscular Hemoglobin 34 pg (28-32); Mean Corpuscular Volume 98 fl (84-94); Monocytes # (Auto) 0.4 K/mm3 (0.0-0.8); Monocytes % (Auto) 9.8 % (0.0-7.3); Platelet Count 260 K/mm3 (140-440); Red Blood Count 4.36 M/mm3 (3.65-5.03); Red Cell Distribution Width 14.2 % (13.2-15.2)
[2018-03-05 06:07] LABS: BUN/Creatinine Ratio 13; Blood Urea Nitrogen 16 mg/dL (9-20); Calcium 8.9 mg/dL (8.4-10.2); Hemolysis Index 33
--- NOTE | 2018-03-05 07:29 | Emergency Department Report ---
ED Psych HPI - General Chief Complaint: Psych Stated Complaint: ABDOMINAL PAIN Time Seen by Provider: 03/05/18 07:20 Source: patient, EMS Mode of arrival: Ambulatory - History of Present Illness Initial Comments: Patient is 52 years old male with history of bipolar disorder and previous suicidal attempt and alcoholism. Patient brought to the ER via EMS after patient was found sitting in the parking lot drinking alcohol. Patient stated that he is thinking about killing himself, is very depressed since his friend 5 days ago. Patient is also stated that he is being hearing voices also. Patient stated that he tried to kill himself before with drug overdose however he does not have a plan now. Patient denied any visual hallucination or homicidal ideation. MD Complaint: suicidal ideation, feels depressed -: days(s) Associated Psychiatric Symptoms: depression, suicidal ideation, auditory hallucinations History of same: Yes Quality: constant Context: recent alcohol abuse Associated Symptoms: denies other symptoms. denies: confusion, headache, shortness of breath, nausea, vomiting, syncope, insomnia If Self Harm: admits thoughts of - Related Data Home Medications Medication Instructions Recorded Confirmed Last Taken Norvir 1 cap PO DAILY 01/07/16 11/19/17 Unknown Prezista 1 tab PO DAILY 01/07/16 11/19/17 Unknown TRUVADA 200-300 mg 1 tab PO DAILY 01/07/16 11/19/17 Unknown amLODIPine 5 mg PO DAILY 01/07/16 11/19/17 Unknown Sertraline [Zoloft] 50 mg PO QDAY 11/08/16 11/19/17 Unknown traZODone [Desyrel] 100 mg PO QHS PRN 11/08/16 11/19/17 Unknown Allergies Allergy/AdvReac Type Severity Reaction Status Date / Time lisinopril AdvReac Unknown Verified 09/07/17 13:08 Sulfa (Sulfonamide AdvReac Unknown Verified 09/07/17 13:08 Antibiotics) ED Review of Systems ROS: Stated complaint: ABDOMINAL PAIN Other details as noted in HPI Comment: All other systems reviewed and negative Constitutional: denies: chills, fever Respiratory: denies: cough, orthopnea, shortness of breath, SOB with exertion, SOB at rest, wheezing Cardiovascular: denies: chest pain, palpitations, dyspnea on exertion Gastrointestinal: denies: abdominal pain, nausea, vomiting Neurological: denies: headache, weakness Psychiatric: depression, auditory hallucinations, suicidal thoughts. denies: visual hallucinations, homicidal thoughts ED Past Medical Hx - Past Medical History Previous Medical History?: Yes Hx Hypertension: Yes Hx GERD: Yes Hx Psychiatric Treatment: Yes (Bipolar; Schizophrenia) Hx HIV: Yes (On medications) Additional medical history: stomach ulcers - Surgical History Past Surgical History?: Yes Additional Surgical History: Rectal fistula repair - Social History Smoking Status: Never Smoker Substance Use Type: Alcohol, Cocaine - Medications Home Medications: Home Medications Medication Instructions Recorded Confirmed Last Taken Type Norvir 1 cap PO DAILY 01/07/16 11/19/17 Unknown History Prezista 1 tab PO DAILY 01/07/16 11/19/17 Unknown History TRUVADA 200-300 mg 1 tab PO DAILY 01/07/16 11/19/17 Unknown History amLODIPine 5 mg PO DAILY 01/07/16 11/19/17 Unknown History Sertraline [Zoloft] 50 mg PO QDAY 11/08/16 11/19/17 Unknown History traZODone [Desyrel] 100 mg PO QHS PRN 11/08/16 11/19/17 Unknown History ED Physical Exam - General Limitations: No Limitations General appearance: alert, in no apparent distress - Head Head exam: Present: atraumatic, normocephalic, normal inspection - ENT ENT exam: Present: normal exam, normal orophraynx, mucous membranes moist - Neck Neck exam: Present: normal inspection, full ROM. Absent: tenderness, meningismus, lymphadenopathy, thyromegaly - Respiratory Respiratory exam: Present: normal lung sounds bilaterally. Absent: respiratory distress, wheezes, rales, rhonchi, stridor, chest wall tenderness, accessory muscle use, decreased breath sounds, prolonged expiratory - Cardiovascular Cardiovascular Exam: Present: regular rate, normal rhythm, normal heart sounds - GI/Abdominal GI/Abdominal exam: Present: soft, normal bowel sounds. Absent: distended, tenderness, guarding, rebound, rigid, organomegaly, mass, bruit, pulsatile mass , hernia - Extremities Exam Extremities exam: Present: normal inspection, full ROM, normal capillary refill - Back Exam Back exam: Present: normal inspection, full ROM. Absent: tenderness, CVA tenderness (R), CVA tenderness (L), muscle spasm, paraspinal tenderness, vertebral tenderness, rash noted - Neurological Exam Neurological exam: Present: alert, oriented X3, CN II-XII intact, normal gait, reflexes normal. Absent: motor sensory deficit - Psychiatric Psychiatric exam: Present: depressed, suicidal ideation. Absent: agitated, manic, homicidal ideation - Skin Skin exam: Present: warm, intact, normal color ED Course Vital Signs 03/05/18 05:01 Temperature 98.2 F Pulse Rate 65 Respiratory 19 Rate Blood Pressure 148/92 Blood Pressure 148/92 [Left] O2 Sat by Pulse 96 Oximetry ED Medical Decision Making - Lab Data Result diagrams: 03/05/18 05:30 03/05/18 05:30 Critical care attestation.: If time is entered above; I have spent that time in minutes in the direct care of this critically ill patient, excluding procedure time. ED Disposition Clinical Impression: Depression, Alcohol intoxication, Suicidal ideation Disposition: DC/TX-65 PSY HOSP/PSY UNIT Is pt being admited?: No Condition: Stable Referrals: PETE CLARKE MD [Primary Care Provider] - 3-5 Days
[2018-03-05 08:22] VITALS: BP 135/90
[2018-03-05 08:26] LABS: Amphetamine Screen,Urine PRESUMPTIVE NEGATIVE; Benzodiazepines Screen,Urine PRESUMPTIVE NEGATIVE; Cannabinoid Screen,Urine PRESUMPTIVE NEGATIVE; Methadone Screen,Urine PRESUMPTIVE NEGATIVE; Opiate Screen,Urine PRESUMPTIVE NEGATIVE
[2018-03-05 08:28] LABS: Bacteria,Urine 1+ /HPF (Negative); Bilirubin,Urine NEG (Negative); Blood,Urine SM (Negative); Color,Urine Yellow (Yellow); Hyaline Casts,Urine 3 /LPF; Mucus,Urine FEW /HPF; Urobilinogen,Urine < 2.0 mg/dL (<2.0)
[2018-03-05 08:49] LABS: Cocaine Screen,Urine PRESUMPTIVE POSITIVE
[2018-03-05] MEDS ORDERED: TYLENOL PO ONE (15:19)
== END 2018-03-05 19:00 ==
LOC: ED 04:42
DX: F32.9 Major depressive disorder, single episode, unspecified (principal); F10.129 Alcohol abuse with intoxication, unspecified; F20.9 Schizophrenia, unspecified; F14.10 Cocaine abuse, uncomplicated; I10 Essential (primary) hypertension; K21.9 Gastro-esophageal reflux disease without esophagitis; Z88.8 Allergy status to other drugs, medicaments and biological substances; Z88.2 Allergy status to sulfonamides
CPT/HCPCS: 36415; 80048; 80307; 81001; 83690; 85025; 99285; G0480; 80320